=== PATIENT | female | born 1960 | race Caucasian/White ===

== ENCOUNTER 2019-03-13 20:08 | Emergency (ER) | payer MEDICAID, OTHER ==
[~2019-03-13] VITALS: Ht 182.9 cm; Wt 87.1 kg
[~2019-03-13 20:08] MED LIST: LISI-646 PO
[2019-03-13 20:17] VITALS: BP 124/86
[2019-03-13] MEDS ORDERED: LORazepam 0.5 MG TAB PO ONE (20:45)
[2019-03-13 21:22] LABS: Acetaminophen < 2.0 ug/mL (10-30); Albumin 3.6 g/dL (3.4-5.0); Anion Gap 9 (5-15); BUN/Creatinine Ratio 24.1; Blood Alcohol < 3.0 mg/dL (0-5); Blood Urea Nitrogen 26 mg/dL (7-18); Calcium 8.8 mg/dL (8.5-10.1); Carbon Dioxide 24 mmol/L (21-32); Chloride 111 mmol/L (98-107); GFR African American 67 mL/min; GFR Non-African American 56 mL/min; Glucose 86 mg/dL (74-106); Potassium 3.9 mmol/L (3.5-5.1); Salicylate 2.2 mg/dL (2.8-20.0); Sodium 144 mmol/L (136-145)
[2019-03-13 21:26] LABS: Basophils # (auto) 0.1 uL; Eosinophils # (auto) 0.9 uL; Eosinophils % (auto) 12.1 % (0.0-7.0); Hemoglobin 9.1 g/dL (12.2-16.2); Mean Corpuscular Hemoglobin 22.8 pg (28.0-32.0); Monocytes # (auto) 0.5 uL; Neutrophils # (auto) 4.2 uL
[2019-03-13 21:27] LABS: Alanine Aminotransferase 20 U/L (13-56); Alkaline Phosphatase 89 U/L (45-117); Aspartate Aminotransferase 17 U/L (15-37); Basophils % (auto) 1.4 % (0.0-2.0); Bilirubin, Total 0.2 mg/dL (0.2-1.0); Hematocrit 29.1 % (36.0-46.0); Lymphocytes # (auto) 1.7 uL; Lymphocytes % (auto) 23.2 % (10.0-50.0); Mean Corpuscular Hgb Conc. 31.2 g/dL (32.0-36.0); Mean Corpuscular Volume 73.1 fL (80.0-100.0); Monocytes % (auto) 6.5 % (0.0-12.0); Neutrophils % (auto) 56.8 % (37.0-80.0); Platelet Count (auto) 444 10^3/uL (140-450); Red Blood Cells 3.98 10^6/uL (4.0-5.20); Red Cell Distribution Width 19.5 % (11.8-14.3); White Blood Cell 7.4 10^3/uL (4.4-10.8)
== END 2019-03-13 23:49 | disposition left against medical advice (07) ==
LOC: ER 20:08
DX: R06.02 Shortness of breath (principal); F41.9 Anxiety disorder, unspecified; Z53.21 Procedure and treatment not carried out due to patient leaving prior to being seen by health care provider
CPT/HCPCS: 36415; 80053; 80320; 80329; 84484; 85025; 93005; 94761

== ENCOUNTER 2019-03-19 14:15 | Emergency (ER) | payer MEDICAID ==
[~2019-03-19] VITALS: Ht 170.2 cm; Wt 90.7 kg
[2019-03-19] MEDS ORDERED: CALCIUM CHLOR(10%) 100MG/ML 10ML SYRINGE IV ONE (14:16)
[2019-03-19] MEDS ORDERED: AMIODARONE HCL (50 MG/ ML) 3 ML VIAL IV ONE (14:16)
[2019-03-19] MEDS ORDERED: SODIUM BICARBONATE 8.4% INJ 50ML SYRINGE IV ONE (14:16)
[2019-03-19] MEDS ORDERED: EPINEPHrine HCL 1 MG/10 ML SYRG IV ONE (14:16)
[2019-03-19] MEDS ORDERED: MIDAZOLAM DRIP 50 mg/50mL 50 ML IV ONE (14:36)
[2019-03-19] MEDS ORDERED: VANCOMYCIN 1GM/250ML 250 ML IV ONE (14:45)
[2019-03-19] MEDS ORDERED: PIPERACILLIN-TAZOB 3.375GM 100 ML IV ONE (14:45)
[2019-03-19] MEDS ORDERED: SODIUM BICARBONATE 8.4% INJ 50ML SYRINGE ONE ×4 (14:49→16:03)
[2019-03-19] MEDS ORDERED: EPINEPHrine HCL 1 MG/10 ML SYRG ONE ×2 (14:50→15:03)
[2019-03-19] MEDS ORDERED: NOREPINEPHRINE 8 MG/250ML KIT 250 ML IV ONE (14:57)
[2019-03-19] MEDS ORDERED: NOREPINEPHRINE 8 MG/250ML KIT 250 ML IV SCH (15:00)
[2019-03-19 15:06] LABS: Chloride 106 mmol/L (98-107); Potassium 3.4 mmol/L (3.5-5.1); Sodium 148 mmol/L (136-145)
[2019-03-19 15:11] LABS: Alanine Aminotransferase 48 U/L (13-56); Albumin 2.8 g/dL (3.4-5.0); Anion Gap 24 (5-15); Aspartate Aminotransferase 60 U/L (15-37); BUN/Creatinine Ratio 15.4; Blood Urea Nitrogen 22 mg/dL (7-18); Carbon Dioxide 18 mmol/L (21-32); GFR African American 49 mL/min; GFR Non-African American 40 mL/min; Glucose 253 mg/dL (74-106)
[2019-03-19] MEDS: MIDAZOLAM DRIP 50 mg/50mL 50 ML IV SCH ×2 (15:11→17:48)
[2019-03-19 15:12] LABS: Alkaline Phosphatase 107 U/L (45-117); Bilirubin, Total 0.2 mg/dL (0.2-1.0); Total Protein 5.8 g/dL (6.4-8.2)
[2019-03-19] MEDS ORDERED: EPINEPHrine HCL 250 ML IV SCH (15:17)
[2019-03-19 15:40] LABS: White Blood Cell 9.8 10^3/uL (4.4-10.8)
[2019-03-19 15:42] LABS: Hemoglobin 8.6 g/dL (12.2-16.2); Mean Corpuscular Hemoglobin 23.2 pg (28.0-32.0); Mean Corpuscular Hgb Conc. 29.6 g/dL (32.0-36.0); Mean Corpuscular Volume 76.3 fL (80.0-100.0); Platelet Count (auto) 212 10^3/uL (140-450); Red Cell Distribution Width 20.5 % (11.8-14.3)
[2019-03-19 15:44] LABS: Basophils % (manual) 0 (0.0-2.0); Blast Cells 0; Myelocytes % 0; Promyelocytes % 0; Reactive Lymphocytes 0
[2019-03-19] MEDS ORDERED: PHENYLEPHRINE INJ 20 MG in D5W 5% 248 ML IV ONE (16:00)
[2019-03-19] MEDS ORDERED: AMIODARONE HCL 150 MG in D5W 5% 100 ML IV ONE (16:15)
[2019-03-19] MEDS ORDERED: AMIODARONE HCL 900 MG in DEXTROSE 500 ML IV SCH ×2 (16:17→22:17)
[2019-03-19 16:21] VITALS: BP 79/53
[2019-03-19] MEDS ORDERED: SODIUM BICARBONATE 8.4 % INJ 50ML VIAL IV ONE (18:15)
[2019-03-19] MEDS ORDERED: SODIUM CHLORIDE 0.9% 1,000 ML IV ONE (18:15)
[2019-03-19 19:08] LABS: Band Neutrophils % (manual) 1; Lymphocytes % (manual) 62 (10.0-50.0)
[2019-03-19 19:09] LABS: Eosinophils % (manual) 3 (0-7); Metamyelocytes % 1; Monocytes % (manual) 3 (0-12)
== END 2019-03-19 16:39 | disposition expired ==
LOC: ER 14:15 → EDBD 14:15 → ER 16:39
DX: I46.9 Cardiac arrest, cause unspecified (principal); J96.90 Respiratory failure, unspecified, unspecified whether with hypoxia or hypercapnia; J44.9 Chronic obstructive pulmonary disease, unspecified; F32.9 Major depressive disorder, single episode, unspecified; I10 Essential (primary) hypertension; R41.82 Altered mental status, unspecified
CPT/HCPCS: 31500; 36415; 36556; 36600; 51702; 70450; 71045; 71250; 74176; 80053; 82805; 82962; 84484; 85007; 85027; 87070; 87077; 87186; 87205; 92950; 93005; 96365; 96366; 96368; 96375; 99291; J0171; J0282; J2250; J2370; J2543; J3370; J7030; J7060; 94002